=== PATIENT | male | born 1990 | race Caucasian/White ===

== ENCOUNTER 2025-02-08 12:38 | Emergency (ER) | payer OTHER ==
[~2025-02-08] VITALS: Ht 180.3 cm; Wt 96.0 kg
[2025-02-08 13:04] VITALS: TEMP 36.8; O2SAT 100
[2025-02-08] MEDS: LIDOCAINE 5% PATCH TOP STA (14:28)
[2025-02-08] MEDS: KETOROLAC 30MG/ML VIAL IM ONE (14:29)
[2025-02-08] MEDS: CYCLOBENZAPRINE 10MG TABLET PO ONE (14:29)
[2025-02-08] MEDS ORDERED: IBUP-2030 MT (15:08)
[2025-02-08] MEDS ORDERED: LIDO700A30 TP (15:08)
[2025-02-08] MEDS ORDERED: CYCL10TA21 MT (15:08)
[2025-02-08 15:24] VITALS: BP 155/80; PULSE 90; RESP 18; O2SAT 100
== END 2025-02-08 15:26 | disposition home or self-care (01) ==
LOC: ER 12:38
DX: M54.41 Lumbago with sciatica, right side (principal); I10 Essential (primary) hypertension; Z90.49 Acquired absence of other specified parts of digestive tract
CPT/HCPCS: 99283; 96372; J1885